=== PATIENT | female | born 1955 | race Caucasian/White ===

== ENCOUNTER → 2019-06-25 | Outpatient (CLI) | payer OTHER ==
[~2019-06-25] MED LIST: GUAI200T37 PO; LEVO500T47 PO; MESA800T2 PO; ONDA4TAB13 SL; OXYC5TAB3 PO; TEMA15CA6 PO
== END | disposition home or self-care (01) ==
LOC: RAD 16:41
PROVIDERS: ATTEND Nurse Practitioner Primary Care
DX: S63.591A Other specified sprain of right wrist, initial encounter (principal); R22.31 Localized swelling, mass and lump, right upper limb; X58.XXXA Exposure to other specified factors, initial encounter; Y93.89 Activity, other specified; Y92.89 Other specified places as the place of occurrence of the external cause; Y99.8 Other external cause status